=== PATIENT | female | born 1970 | race Caucasian/White ===

== ENCOUNTER 2021-11-12 07:39 | Observation (INO) | payer BC, SELFPAY ==
[2021-11-12] VITALS (19 sets, daily range): BP systolic 116–153; BP diastolic 58–97; PULSE 63–96; RESP 12–26; TEMP 36.8–37.4; O2SAT 95–100; BMI 33.8
--- NOTE | ~2021-11-12 | XR_ITS ---
EXAMINATION: XR chest 2V EXAM DATE: 11/12/2021 08:08 INDICATION: Chest Pain, Chest Heavy, Hand Tingling, No Known Med Hx TECHNIQUE: Frontal and lateral projections of the chest obtained and reviewed. Comparison is made to prior examination from 12/04/2018. FINDINGS: The lungs are clear. There are no pleural effusions. The cardiomediastinal silhouette is within normal limits. There is no pneumothorax suspected. The bones and soft tissues are unremarkab le. IMPRESSION: No acute cardiopulmonary findings. Reviewed, dictated and finalized at location G. GER TRACK
--- NOTE | 2021-11-12 08:00 | ECG_ITS ---
Measurements Intervals [place] Rate: 88 P: 63 OR: 157 QRS: 7 QRSD: 94 T: 62 QT: 360 QTc: 438 Interpretive Statements SINUS RHYTHM EARLY PRECORDIAL R/S TRANSITION BORDERLINE ST-T WAVE ABNORMALITY- HIGH LATERAL LEADS BASELINE ARTIFACT- I, II, III, AVR, AVF, V2-V6 BORDERLINE ECG Electronically Signed On 11-12-2021 8:13:21 METAL FRAMER by Jareth James D.O.
[2021-11-12 08:07] LABS: Basophils Percent Auto 0.5 % (0.2-1.2); Eosinophils Absolute Auto 0.1 K/mm3 (0-0.3); Eosinophils Percent Auto 1.4 % (0-4.4); Hematocrit 39.5 % (37.0-47.0); Hemoglobin 13.2 g/dL (12.0-15.0); Immature Granulocyte Absolute 0.01 K/mm3 (0.00-0.031); Immature Granulocyte Percent A 0.2 % (0-0.5); Lymphocytes Absolute Auto 2.19 K/mm3 (0.9-3.2); Lymphocytes Percent Auto 39.3 % (18.3-44.2); Mean Corpuscular HGB Conc 33.4 g/dl (32-36); Mean Corpuscular Hemoglobin 29.6 pg (26-34); Mean Corpuscular Volume 88.6 fl (80-100); Mean Platelet Volume 9.7 fl (7.4-10.4); Monocytes Absolute Auto 0.4 K/mm3 (0.1-0.6); Monocytes Percent Auto 6.6 % (2.6-8.5); Neutrophils Absolute Auto 2.9 K/mm3 (1.3-6.7); Platelet Count Result 276 k/mm3 (150-375); Red Blood Count 4.46 M/mm3 (4.2-5.4); White Blood Count 5.6 K/mm3 (4.5-10.0)
[2021-11-12 08:18] LABS: Alanine Aminotransferase 18 U/L (4-35); Albumin Level 4.5 g/dL (3.5-5.1); Alkaline Phosphatase 53 U/L (38-126); Anion Gap 12 mmol/L (8-16); Aspartate Amino Transferase 22 U/L (14-36); Bilirubin,Total 0.3 mg/dL (0.2-1.3); Blood Urea Nitrogen 13 mg/dL (7-17); Calcium 9.7 mg/dL (8.4-10.2); Carbon Dioxide 24 mmol/L (22-30); Chloride 104 mmol/L (98-107); Estimated CRCL calculation 84 ml/min; Estimated Glomerular Filt Rate > 60; Glucose 116 mg/dL (65-110); Lipase 118 U/L (23-300); Potassium 3.8 mmol/L (3.4-5.0); Sodium 140 mmol/L (137-145)
[2021-11-12 08:20] LABS: Partial Thromboplastin Time 28.6 SECONDS (22.3-36.8); Prothrombin Time 13.1 Seconds (11.1-14.7)
[2021-11-12] MEDS: ASPIRIN 81 MG CHEWABLE TABLET 324 MG PO (08:27)
[2021-11-12 08:33] LABS: Troponin I < 0.012 ng/mL (0.000-0.034)
--- NOTE | 2021-11-12 09:05 | PC.NURSE ---
Awaiting to be seen by ERP. Offers no c/o.
--- NOTE | 2021-11-12 09:05 | ED.GENADULT ---
HPI - General Adult General Chief complaint: Chest Pain Stated complaint: cp Time Seen by Provider: 11/12/21 09:02 History of Present Illness HPI narrative: Patient is a 51-year-old female with history of obesity, history of cigarette use, family history of CAD who comes to the ED today complaining of chest pain. Patient reports that she has been having chest pain intermittently for about a month. Has become worse since yesterday. She woke up at 4 AM with the chest pain that she describes as pressure. Also this morning she had tingling and both shoulders and was diaphoretic. Currently still having some midsternal chest pressure. Denies any shortness of breath. Denies any lower extremity edema. Has a 45-fcbs-iual cigarette smoking history, quit smoking about 6 months ago. Notes that she is on clindamycin for a dental abscess. Last stress test was several years ago. Does not have a clinical care leader. Related Data Home Medications Medication Instructions Recorded Confirmed clindamycin HCl 300 mg TID 11/12/21 11/12/21 Allergies Allergy/AdvReac Type Severity Reaction Status Date / Time hydrocodone Allergy Severe HALLUCINATI Verified 11/12/21 08:04 ONS imipramine Allergy Severe CONFUSION Verified 11/12/21 08:04 latex Allergy Severe ITCHEY Verified 11/12/21 08:04 SWELLING Penicillins Allergy Severe SWELLING Verified 11/12/21 08:04 FACE, RASH codeine Allergy Unknown Unknown Verified 11/12/21 08:04 Review of Systems Constitutional: Constitutional: Reports as per HPI, Denies fever(s), Denies night sweats and Denies weakness Cardiovascular: Cardiovascular: Reports chest pain, Denies edema, Denies leg edema, Denies dyspnea and Denies orthopnea Respiratory: Respiratory: Denies cough and Denies dyspnea Gastrointestinal: Gastrointestinal: Denies abdominal pain, Denies constipation, Denies diarrhea, Denies nausea and Denies vomiting Musculoskeletal: Musculoskeletal: Denies abnormal gait, Denies back pain, Denies numbness and Denies tingling Neurologic: Denies Abnormal speech present, Denies abnormal gait, Denies numbness, Denies tingling and Denies weakness Psychiatric: Psychiatric: Denies homicidal ideation and Denies suicidal ideation [facility] Family History Family History Father Hypertension Family history of elevated blood lipids Mother Patient's mother is in good health Family history of elevated blood lipids Family history of diabetes mellitus in first degree relative Grandparent Cerebrovascular accident, Onset Age: 78 Family history of lung cancer, Onset Age: 74 Social History Social History Years smoked: 5 Smoking status: Current every day smoker Tobacco type: cigarettes Smoking end date: 10/27/98 Alcohol intake: current Exam Const: General: cooperative, healthy appearing, comfortable, no acute distress, well developed, alert, awake and Physically active Orientation/consciousness: patient oriented x3 HENMT: Head: normal to inspection, normocephalic and atraumatic Ears: external ears normal General nose exam: Normal external nose present Throat image: 1. Dental carry. Surrounding gingiva is tender to palpate. No appreciable drainable abscess Eyes: Pupils: Equal, round and reactive pupils present EOM: EOMs intact bilaterally Neck: Neck: normal visual inspection Chest: Chest palpation & inspection: normal inspection of the chest and tenderness (Tender to palpate over midsternal aspect of chest) Resp: Effort & Inspection: normal respiratory effort and able to speak in complete sentences Auscultation: clear to auscultation bilaterally Cardio: Rate: regular rate Rhythm: regular rhythm GI: Inspection: normal to inspection GI Palp: No abdominal tenderness : General: Yes no CVA tenderness Back/Spine/Pelvis: Back: no CVA tenderness Skin:
[2021-11-12] MEDS: FAMOTIDINE 20 MG TABLET PO (10:37)
[2021-11-12] MEDS: ACETAMINOPHEN 325 MG TABLET 650 MG PO (10:37)
[2021-11-12 11:56] LABS: Troponin I < 0.012 ng/mL (0.000-0.034)
[2021-11-12 14:40] LABS: Troponin I < 0.012 ng/mL (0.000-0.034)
--- NOTE | 2021-11-12 15:28 | PM.SD2 ---
Same Day Admit/Disch: HPI History of Present Illness Chief complaint: Chest Pain Narrative: Amelia Briscoe is a 51 year old female with past medical history of interstitial cystitis, cigarette smoking, obesity, and seasonal allergies who presented to the emergency department today for complaints of chest pain. According to the patient, she began experiencing retrosternal chest pain about 1 month ago. She describes the pain as a dull, sore, constant pressure-like sensation that does not radiate. She says that the pain does not worsen with activity and she is not aware of any specific relieving factors. She does say that she usually sleeps on her side because she has some back pain and this seems to cause increased discomfort in her chest. She says that her sternum is painful to touch and she thinks that she feels a bump on her sternum. She denies having any associated nausea, diaphoresis, radiating pain. She did decide to come to the hospital today because she had an episode of experiencing pain in her shoulder associated with numbness across her back and this caused her to lose mold mechanic on her coffee cup. Currently, she states that this discomfort is at her baseline and has been constant since her presentation to the emergency department. [facility] Family History Family History (Updated 11/12/21 @ 15:41 by ROBB Batista) Father Hypertension Family history of elevated blood lipids Acute myocardial infarction Per patient, father had a CABG x5 in 2012. Mother Patient's mother is in good health Family history of elevated blood lipids Family history of diabetes mellitus in first degree relative Grandparent Cerebrovascular accident, Onset Age: 78 Family history of lung cancer, Onset Age: 74 Social History Social History Years smoked: 5 Smoking status: Former smoker Tobacco type: cigarettes Smoking end date: 06/14/20 Alcohol intake: current Gender identity (if verbalized by the patient): Female Sexual Orientation (if Verbalized by the Patient): Straight or Heterosexual Same Day Admit/Disch: Med Pre-admit Medications Home Medications Medication Instructions Recorded Confirmed Type albuterol sulfate 90 mcg/actuation 2 inh INHALATION Q4-6H PRN #8.5 g 03/22/21 08/21/21 Rx aerosol inhaler clindamycin HCl 300 mg TID 11/12/21 11/12/21 History Exam Const: General: comfortable and no acute distress HENMT: Head: normal to inspection Mouth: Yes moist mucous membranes Eyes: General: appearance normal, both eyes and all related structures Pupils: Equal, round and reactive pupils present Neck: Neck: supple and no JVD Resp: Auscultation: clear to auscultation bilaterally Cardio: Rate: regular rate Rhythm: regular rhythm Heart sounds: S1 normal heart sound present and S2 normal heart sound present GI: GI Palp: Yes Soft to palpation Auscultation: normal bowel sounds Skin: General skin exam: normal color Wounds: no wounds Neuro: Cognition (Neuro): normal cognition Speech: normal speech Extrem: General: normal to inspection Psych: Mental Status: mental status grossly normal Affect: normal affect DS: Data Data Completed and Pending Labs on day of discharge: Labs from last 24 hours 11/12/21 11/12/21 11/12/21 14:02 11:26 08:02 WBC RBC Hgb Hct MCV MCH MCHC RDW Plt Count MPV Immature Gran % (Auto) Neut % (Auto) Lymph % (Auto) Scurry % (Auto) Eos % (Auto) Baso % (Auto) Lymph # (Auto) Scurry # (Auto) Eos # (Auto) Baso # (Auto) Abs Immat Gran (auto) Absolute Neuts (auto) Absolute Nucleated RBC Nucleated RBC % PT INR APTT Sodium 140 Potassium 3.8 Chloride 104 Carbon Dioxide 24 Anion Gap 12 BUN 13 Creatinine 0.70 Estim Creat Clear Calc 84 Estimated GFR > 60 Glucose 116 H Calcium 9.7 Tota
== END 2021-11-12 16:21 | disposition home or self-care (01) ==
LOC: ANHED 10:26 → ANHCPC 10:52
PROVIDERS: Admitting Provider Internal Medicine Cardiovascular Disease; Emergency Provider Emergency Medicine; PCP Internal Medicine; Visit Provider Internal Medicine Cardiovascular Disease
DX: R07.9 Chest pain, unspecified (principal); E78.5 Hyperlipidemia, unspecified; F17.201 Nicotine dependence, unspecified, in remission; K02.9 Dental caries, unspecified; Z79.51 Long term (current) use of inhaled steroids; E66.9 Obesity, unspecified; Z68.33 Body mass index [BMI] 33.0-33.9, adult
CPT/HCPCS: 36415; 71046; 80053; 83690; 84484; 85025; 85610; 85730; 93005; 99285; A9270; G0378

== ENCOUNTER 2023-08-14 15:10 | Outpatient (CLI) | payer BC, OTHER, SELFPAY ==
--- NOTE | 2023-08-19 14:18 | WPDHOLTEREM ---
Holter/Event Monitor Holter/Event Monitor Date of procedure: 08/14/23 Holter/Event Procedure: 48 Hr Holter Monitor Indications: Bradycardia Conclusion: 1. 48 hour holter monitor on 08/14/23. 2. Underlying rhythm is sinus rhythm. HR range 59-129 bpm; average HR 90 bpm. 3. There are 11 premature supraventricular complexes. No supraventricular tachycardia. 4. No premature ventricular complexes. No ventricular tachycardia. 5. No sinoatrial or atrioventricular blocks. No significant pauses greater than 2 seconds. 6. Patient reports symptoms of rapid heart rate and chest pain which demonstrate sinus rhythm, HR range 97-111 bpm.
== END 2023-08-14 15:11 | disposition home or self-care (01) ==
LOC: ANHCARD 15:16
PROVIDERS: PCP Internal Medicine; Visit Provider Internal Medicine
DX: R00.1 Bradycardia, unspecified (principal)
CPT/HCPCS: 93225; 93226

== ENCOUNTER 2023-08-19 14:00 | Emergency (ER) | payer BC, OTHER, SELFPAY ==
--- NOTE | ~2023-08-19 | XR_ITS ---
EXAMINATION: XR chest 2V 08/19/2023 15:00 INDICATION: Cough with fever PROCEDURE: 2 view chest COMPARISON: 11/12/2021 FINDINGS: The lungs are clear. The cardiomediastinal silhouette is within normal limits. There are no pleural effusions. There is no pneumothorax suspected. IMPRESSION: 1: NO ACUTE CARDIOPULMONARY DISEASE. Reviewed, dictated and finalized at location L.
--- NOTE | 2023-08-19 14:04 | ED.URI ---
HPI - URI/Sore Throat General Chief Complaint: Upper Respiratory Infection Stated Complaint: Sinus/Fever Time Seen by Provider: 08/19/23 14:18 Source: patient, RN notes reviewed and old records reviewed Mode of arrival: ambulatory Limitations: no limitations History of Present Illness HPI Narrative: 53-year-old female presents to the [facility] with sinus pressure and fever. Symptoms started 2 days ago. Has been using Flonase. No other treatment prior to arrival. Onset (ago): day(s) (2) Treatments prior to arrival: other (Flonase) Related Data Home Medications Medication Instructions Recorded Confirmed cephalexin 500 mg capsule mg 08/19/23 fluticasone propionate 50 1 spray intranasal DAILY 08/19/23 08/19/23 mcg/actuation nasal spray,suspension Allergies Allergy/AdvReac Type Severity Reaction Status Date / Time hydrocodone Allergy Severe HALLUCINATI Verified 08/19/23 14:07 ONS imipramine Allergy Severe CONFUSION Verified 08/19/23 14:07 latex Allergy Severe ITCHEY Verified 08/19/23 14:07 SWELLING Penicillins Allergy Severe SWELLING Verified 08/19/23 14:07 FACE, RASH codeine Allergy Unknown Unknown Verified 08/19/23 14:07 clindamycin Allergy Severe Other Uncoded 08/19/23 14:07 bactrim Allergy Mild Itching Uncoded 08/19/23 14:07 Review of Systems Review of Systems: All systems reviewed & are unremarkable except as noted in HPI and below Constitutional: Constitutional: Reports no additional constitutional complaints Eyes: Eyes: Reports no additional eye complaints ENT: Reports as per HPI Cardiovascular: Cardiovascular: Reports no additional cardiovascular complaints, Denies chest pain and Denies dyspnea Respiratory: Respiratory: Reports as per HPI, Denies chest congestion, Reports cough and Denies dyspnea Gastrointestinal: Gastrointestinal: Reports no additional gastrointestinal complaints, Denies abdominal pain, Denies nausea and Denies vomiting Musculoskeletal: Musculoskeletal: Reports no additional musculoskeletal complaints Integumentary/Breasts: Skin/Breast: Reports system reviewed and no additional complaints, except as docu Neurologic: Reports system reviewed and no additional complaints, except as documented Psychiatric: Psychiatric: Reports no additional psychiatric complaints Allergic/Immunologic: Allergic/Immunologic: Reports no additional allergic/immunologic complaints PMFSH Past Medical History Medical History Cigarette smoker Family History Family History Father Hypertension Family history of elevated blood lipids Acute myocardial infarction Per patient, father had a CABG x5 in 2013. Mother Patient's mother is in good health Family history of elevated blood lipids Family history of diabetes mellitus in first degree relative Grandparent Cerebrovascular accident, Onset Age: 78 Family history of lung cancer, Onset Age: 74 Social History Social History Years smoked: 5 Smoking status: Former smoker Tobacco type: cigarettes Smoking end date: 06/14/20 Alcohol intake: current Lack of Transportation: No Lack of Food: Never True Current Housing: I Have Housing Concerned About Future Housing: No Difficulty Paying Gas/Electric Bills: No Difficulty Paying for Meds: No Currently Unemployed: No Education: Associate Degree Difficulty w/ Childcare or Family Care: No Gender identity (if verbalized by the patient): Female Sexual Orientation (if Verbalized by the Patient): Straight or Heterosexual Comments At the time of my signature, I reviewed and agree with the nursing past medical, surgical, social, and family history. There is no relevant family history pertinent to the patient complaint. Exam Const: General: cooperative, healthy appearing, comfortable, no acute distress, well developed, alert and
[2023-08-19 14:09] VITALS: BP 139/81; PULSE 126; RESP 20; TEMP 39; O2SAT 95
[2023-08-19 14:22] VITALS: TEMP 39
[2023-08-19] MEDS: ACETAMINOPHEN 500 MG TABLET 1000 MG PO (14:22)
[2023-08-19 15:12] VITALS: TEMP 38.6
== END 2023-08-19 15:16 | disposition home or self-care (01) ==
PROVIDERS: Emergency Provider Nurse Practitioner; PCP Internal Medicine
DX: B34.9 Viral infection, unspecified (principal); Z20.822 Contact with and (suspected) exposure to COVID-19; Z87.891 Personal history of nicotine dependence
CPT/HCPCS: 71046; 87081; 87426; 87804; 87880; 99213; A9270; C9803; G0463

== ENCOUNTER 2023-10-23 08:38 | Emergency (ER) | payer BC, OTHER, SELFPAY ==
--- NOTE | 2023-10-23 08:45 | ED.GENADULT ---
HPI - General Adult General Chief complaint: Recheck/Abnormal Lab/Rx Stated complaint: High B/P Time Seen by Provider: 10/23/23 08:52 Source: patient, RN notes reviewed and old records reviewed Mode of arrival: ambulatory Limitations: no limitations History of Present Illness HPI narrative: 53-year-old female presents to the [facility] with concerns for her blood pressure. Recently started in June on medication. Recently started on lisinopril due to GI issues was switched to amlodipine. Patient states her blood pressures have been 140s to 160s systolic Reports intermittent headache. Denies any other symptoms. Denies any symptoms currently Related Data Home Medications Medication Instructions Recorded Confirmed cephalexin 500 mg capsule mg 08/19/23 fluticasone propionate 50 1 spray intranasal DAILY 08/19/23 08/19/23 mcg/actuation nasal spray,suspension Allergies Allergy/AdvReac Type Severity Reaction Status Date / Time hydrocodone Allergy Severe HALLUCINATI Verified 08/19/23 14:07 ONS imipramine Allergy Severe CONFUSION Verified 08/19/23 14:07 latex Allergy Severe ITCHEY Verified 08/19/23 14:07 SWELLING Penicillins Allergy Severe SWELLING Verified 08/19/23 14:07 FACE, RASH codeine Allergy Unknown Unknown Verified 08/19/23 14:07 clindamycin Allergy Severe Other Uncoded 08/19/23 14:07 bactrim Allergy Mild Itching Uncoded 08/19/23 14:07 Review of Systems Review of Systems: All systems reviewed & are unremarkable except as noted in HPI and below Constitutional: Constitutional: Reports as per HPI (Concern for blood pressure) and Reports headache(s) (Intermittent) Eyes: Eyes: Reports no additional eye complaints ENT: Reports system reviewed and no additional complaints, except as documented Cardiovascular: Cardiovascular: Reports no additional cardiovascular complaints, Denies chest pain and Denies dyspnea Respiratory: Respiratory: Reports no additional respiratory complaints, Denies chest congestion, Denies cough and Denies dyspnea Gastrointestinal: Gastrointestinal: Reports no additional gastrointestinal complaints, Denies abdominal pain, Denies nausea and Denies vomiting Musculoskeletal: Musculoskeletal: Reports no additional musculoskeletal complaints Integumentary/Breasts: Skin/Breast: Reports system reviewed and no additional complaints, except as docu Neurologic: Reports system reviewed and no additional complaints, except as documented Psychiatric: Psychiatric: Reports no additional psychiatric complaints Allergic/Immunologic: Allergic/Immunologic: Reports no additional allergic/immunologic complaints PMFSH Past Medical History Medical History Cigarette smoker Family History Family History Father Hypertension Family history of elevated blood lipids Acute myocardial infarction Per patient, father had a CABG x5 in 2012. Mother Patient's mother is in good health Family history of elevated blood lipids Family history of diabetes mellitus in first degree relative Grandparent Cerebrovascular accident, Onset Age: 78 Family history of lung cancer, Onset Age: 74 Social History Social History Years smoked: 5 Smoking status: Former smoker Tobacco type: cigarettes Smoking end date: 06/14/20 Alcohol intake: current Lack of Transportation: No Lack of Food: Never True Current Housing: I Have Housing Concerned About Future Housing: No Difficulty Paying Gas/Electric Bills: No Difficulty Paying for Meds: No Currently Unemployed: No Education: Associate Degree Difficulty w/ Childcare or Family Care: No Gender identity (if verbalized by the patient): Female Sexual Orientation (if Verbalized by the Patient): Straight or Heterosexual Comments At the time of my signature, I reviewed and agree with the nursing past med
[2023-10-23 08:49] VITALS: BP 146/88; PULSE 98; RESP 16; TEMP 37; O2SAT 98
== END 2023-10-23 09:08 | disposition home or self-care (01) ==
PROVIDERS: Emergency Provider Nurse Practitioner; PCP Internal Medicine
DX: R03.0 Elevated blood-pressure reading, without diagnosis of hypertension (principal); Z87.891 Personal history of nicotine dependence
CPT/HCPCS: 99211; G0463

== ENCOUNTER 2023-11-25 12:31 | Emergency (ER) | payer BC, OTHER, SELFPAY ==
--- NOTE | ~2023-11-25 | XR_ITS ---
EXAMINATION: XR chest 2V DATE: 11/25/2023 13:11 INDICATION: Chest pain. TECHNIQUE: Frontal and lateral views of the chest were obtained. COMPARISON: Chest 2 views 08/19/2023 FINDINGS: There is no pneumonia, pleural effusion, or pneumothorax. The heart size is normal. IMPRESSION: 1. No acute cardiopulmonary disease. Reviewed, dictated and finalized at location A. SAW OPERATOR
--- NOTE | 2023-11-25 12:32 | ECG_ITS ---
Measurements Intervals [place] Rate: 97 P: 65 [place]: 155 QRS: 11 QRSD: 98 T: 67 QT: 343 QTc: 436 Interpretive Statements SINUS RHYTHM BORDERLINE ST-T WAVE ABNORMALITY- ANTEROLAT/HIGH LAT LEADS BASELINE ARTIFACT- I, III BORDERLINE ECG COMPARED TO ECG 11/12/2021 07:54:07 NO SIGNIFICANT CHANGES Electronically Signed On 11-25-2023 12:53:31 PRODUCT ASSURANCE ENGINEER by Jareth James D.O.
[2023-11-25 12:36] VITALS: BP 144/81; PULSE 94; RESP 16; TEMP 36.8; O2SAT 99
--- NOTE | 2023-11-25 12:47 | ED.CHESTPAIN ---
HPI - Chest Pain General Chief Complaint: Chest Pain Stated Complaint: Chest pain Time Seen by Provider: 11/25/23 12:47 Source: patient and family Mode of arrival: ambulatory Limitations: no limitations History of Present Illness HPI narrative: 53 years old white female came to the emergency room by private car with sudden onset of tingling of the hand and legs with lightheadedness lasted for few seconds less than 1 minute while walking her dog this morning. A lot of stress lately related to work and ex-boyfriend. Patient denies any chest pain or shortness of breath, history of hypertension, intermittent smoking, intermittent drinking, father had a heart attack at age 68. Related Data Home Medications Medication Instructions Recorded Confirmed cephalexin 500 mg capsule mg 08/19/23 fluticasone propionate 50 1 spray intranasal DAILY 08/19/23 08/19/23 mcg/actuation nasal spray,suspension Allergies Allergy/AdvReac Type Severity Reaction Status Date / Time clindamycin Allergy Severe ESOPHAGITIS Verified 11/25/23 12:49 hydrocodone Allergy Severe HALLUCINATI Verified 11/25/23 12:45 ONS imipramine Allergy Severe CONFUSION Verified 11/25/23 12:45 latex Allergy Severe ITCHEY Verified 11/25/23 12:45 SWELLING Penicillins Allergy Severe SWELLING Verified 11/25/23 12:45 FACE, RASH sulfamethoxazole Allergy Mild Itching Verified 11/25/23 12:48 [From Bactrim] trimethoprim [From Bactrim] Allergy Mild Itching Verified 11/25/23 12:48 codeine Allergy Unknown Unknown Verified 11/25/23 12:45 Review of Systems Review of Systems: All systems reviewed & are unremarkable except as noted in HPI and below PMFSH Past Medical History Medical History Cigarette smoker Family History Family History Father Hypertension Family history of elevated blood lipids Acute myocardial infarction Per patient, father had a CABG x5 in 2013. Mother Patient's mother is in good health Family history of elevated blood lipids Family history of diabetes mellitus in first degree relative Grandparent Cerebrovascular accident, Onset Age: 78 Family history of lung cancer, Onset Age: 74 Social History Social History Years smoked: 5 Smoking status: Former smoker Tobacco type: cigarettes Smoking end date: 06/14/20 Alcohol intake: current Lack of Transportation: No Lack of Food: Never True Current Housing: I Have Housing Concerned About Future Housing: No Difficulty Paying Gas/Electric Bills: No Difficulty Paying for Meds: No Currently Unemployed: No Education: Associate Degree Difficulty w/ Childcare or Family Care: No Gender identity (if verbalized by the patient): Female Sexual Orientation (if Verbalized by the Patient): Straight or Heterosexual Exam Narrative: General appearance: Well-developed, well-nourished Skin: Normal color Head: Normocephalic, nontraumatic Eyes: Clear conjunctiva ENT: Oropharynx normal, ears normal, nose normal Neck: Supple, nontender Chest and respiratory: Airway patent, no respiratory distress, no accessory muscle use Heart: Regular rate/rhythm Abdomen: Soft, nontender, no organomegaly, quiet bowel sounds Vascular: Normal peripheral pulses, normal capillary refill. Musculoskeletal: Normal range of motion, nontender back Neurologic: Alert and oriented ?3, HAM CURER is normal as tested, no gross motor deficit Course Reevaluation(s) Reevaluation #1: Feeling much better after Ativan IV Date: 11/25/23 Time: 13:41 Vital Signs Vital signs: Vital Signs
[2023-11-25 12:50] VITALS: BP 138/82; PULSE 90; RESP 14; O2SAT 100
[2023-11-25] MEDS: ASPIRIN 81 MG CHEWABLE TABLET 324 MG PO (12:52)
[2023-11-25 12:54] LABS: Basophils Absolute Auto 0.1 K/mm3 (0.0-0.1); Basophils Percent Auto 0.5 % (0.2-1.2); Eosinophils Absolute Auto 0.1 K/mm3 (0-0.3); Eosinophils Percent Auto 0.8 % (0-4.4); Hematocrit 44.8 % (37.0-47.0); Hemoglobin 14.3 g/dL (12.0-15.0); Immature Granulocyte Absolute 0.02 K/mm3 (0.00-0.031); Immature Granulocyte Percent A 0.2 % (0-0.5); Lymphocytes Absolute Auto 2.62 K/mm3 (0.9-3.2); Mean Corpuscular HGB Conc 31.9 g/dl (32-36); Mean Corpuscular Hemoglobin 28.4 pg (26-34); Mean Corpuscular Volume 89.1 fl (80-100); Mean Platelet Volume 9.8 fl (7.4-10.4); Monocytes Absolute Auto 0.4 K/mm3 (0.1-0.6); Monocytes Percent Auto 4.4 % (2.6-8.5); Neutrophils Absolute Auto 6.5 K/mm3 (1.3-6.7); Neutrophils Percent Auto 67.1 % (45.5-73.1); Platelet Count Result 387 k/mm3 (150-375); Red Blood Count 5.03 M/mm3 (4.2-5.4); Red Cell Distribution Width 13.2 % (11.5-14.5); White Blood Count 9.7 K/mm3 (4.5-10.0)
[2023-11-25 12:59] LABS: Alanine Aminotransferase 20 U/L (6-35); Albumin Level 4.7 g/dL (3.5-5.1); Alkaline Phosphatase 76 U/L (38-126); Anion Gap 11 mmol/L (8-16); Aspartate Amino Transferase 25 U/L (14-36); Bilirubin,Total 0.4 mg/dL (0.2-1.3); Blood Urea Nitrogen 11 mg/dL (7-17); Calcium 9.8 mg/dL (8.4-10.2); Carbon Dioxide 24 mmol/L (22-30); Chloride 105 mmol/L (98-107); Estimated CRCL calculation 105 ml/min; Estimated Glomerular Filt Rate > 60; Glucose 114 mg/dL (65-110); Lipase 98 U/L (23-300); Sodium 140 mmol/L (137-145)
[2023-11-25 13:10] LABS: Troponin I < 0.012 ng/mL (0.000-0.034)
[2023-11-25] MEDS: LORazepam INJ (*CRX) 2 MG/ML VIAL 1 MG IV PUSH (13:23)
[2023-11-25 13:26] VITALS: BP 132/80; PULSE 92; RESP 16; O2SAT 98
[2023-11-25 13:29] LABS: Thyroid Stimulating Hormone 0.312 uIU/mL (0.465-4.680)
[2023-11-25 13:29] LABS: Prothrombin Time 13.7 Seconds (11.1-14.7)
[2023-11-25 13:30] LABS: Partial Thromboplastin Time 29.2 SECONDS (22.3-36.8)
== END 2023-11-25 14:27 | disposition home or self-care (01) ==
PROVIDERS: Emergency Provider Emergency Medicine; PCP Internal Medicine
DX: R07.9 Chest pain, unspecified (principal); R20.2 Paresthesia of skin; R42 Dizziness and giddiness; Z87.891 Personal history of nicotine dependence
CPT/HCPCS: 36415; 71046; 80053; 83690; 84443; 84484; 85025; 85610; 85730; 93005; 96374; 99284; A9270; J2060

== ENCOUNTER 2024-01-01 08:19 | Outpatient (CLI) | payer BC, OTHER, SELFPAY ==
--- NOTE | 2024-01-15 16:09 | WPDHOMESLEEP ---
Sleep Study - Home Unattended Date of Study: 01/01/24 Ordering Provider: Max Reed PA-C Interpreting Provider: Joy Yao MD [place] Sleep Study Type: Watch PAT Height: 1.57 m Weight: 89.811 kg Body Mass Index: 36.2 Neck Circumference (inches): 14.5 [place]: 5 Reason for Sleep Study poor sleep quality, increased blood pressure Sleep History Amelia Briscoe is a 53-year-old woman with poor quality sleep, initially when her son was diagnosed with cancer at age 6; had recurrence when he was 11 years old. He is now 22 years old, doing well. She rarely awakens from sleep short of breath. She occasionally wakes at night with heartburn, belching or coughing.??She frequently snores loudly enough that others complain. She occasionally has trouble sleeping when she has a cold. She rarely wakes up gasping for breath during the night. She rarely has breathing problems at night. She frequently sweats excessively at night. She frequently notices her heart pounding or beating irregularly during the night. She never falls asleep during the day, falls asleep involuntarily, or falls asleep while driving. She never experiences loss of muscle tone with strong emotion. She never feels paralyzed on waking or falling asleep. She never experiences vivid dreams upon waking or falling asleep. She never feels afraid of going to sleep. She never has nightmares. She occasionally recalls her dreams. She frequently has thoughts racing through her mind. She rarely feels sad or depressed. She constantly feels anxiety. She occasionally notices parts of her body jerk. She occasionally kicks during the night. She rarely feels crawling or aching feelings in her legs. She rarely feels leg pain at night. She occasionally has morning jaw pain, and frequently grinds her teeth at night. She occasionally feels bothered by pain during the day, is rarely awakened by pain during the night. She rarely wakes up feeling stiff in the morning, occasionally wakes feeling sore or achy in the morning or with pain in her neck, spine, or joints. She wakes with a scratchy throat, sometimes a headache, has daytime fatigue, and has bladder issues. Her blood pressure has been more difficult to control. She sometimes takes a Xanax to get to sleep at night. She has chest pain from reflux. Normal bedtime is 10:p.m., falling asleep, waking within 30 min to an hour, waking 2-3 times in the night to urinate, returning to sleep within 2-5 minutes. She wakes at 5:30 a.m., reports getting 5-6 hours of sleep per night. On weekends, she goes to bed at midnight, sleeps until she wakes, usually around 9:00 a.m. She has insomnia, fatigue, and takes antacids regularly. She has headaches and palpitations. She does not take naps. A short nap lasting 10-15 minutes is not refreshing. She is drowsy for 2 hours after waking. Habits:??Tobacco: Quit smoking ; congrats! Caffeine: 4 cups of coffee daily. Alcohol:socially, 3 beers a week Recreational substances: none PMFSH Past Medical History Medical History (Updated 01/16/24 @ 12:54 by Joy Yao MD) Essential hypertension GERD (gastroesophageal reflux disease) Hyperlipidemia Insomnia Family History Family History Father Hypertension Family history of elevated blood lipids Acute myocardial infarction Per patient, father had a CABG x5 in 2012. Mother Patient's mother is in good health Family history of elevated blood lipids Family history of diabetes mellitus in first degree relative Grandparent Cerebrovascular accident, Onset Age: 78 Family history of lung cancer, Onset Age: 74 Social History Social History Years smoked: 5 Smoking status: Former smoker Tobacco type: cigarettes Smoking end date: 06/14/20 Alcohol intake: current Lack of Transportation: No Lack of Food: Pily
[2024-01-16 12:35] VITALS: BMI 36.2
== END 2024-01-02 07:30 | disposition home or self-care (01) ==
LOC: ANHCSM 08:21
PROVIDERS: PCP Internal Medicine; Visit Provider Physician Assistant
DX: G47.10 Hypersomnia, unspecified (principal); G47.33 Obstructive sleep apnea (adult) (pediatric)
CPT/HCPCS: 95800

== ENCOUNTER 2024-02-04 08:32 | Outpatient (CLI) | payer BC, OTHER, SELFPAY ==
[2024-02-15 18:35] VITALS: BMI 36.2
--- NOTE | 2024-02-15 18:35 | WPDSLEEPSTUD ---
Sleep Study Date of Study: 02/04/24 Ordering Provider: Max Reed PA-C Interpreting Physician: Melany Velazquez, Sleep Study Type: CPAP Titration Height: 1.57 m Weight: 89.811 kg Body Mass Index: 36.2 Neck Circumference (inches): 14.5 [place]: 5 Reason for Sleep Study She had a WatchPAT home sleep test on 01/01/2024 that showed an overall AHI of 16.3 with desaturation down to 74%. REM AHI of 44.7. Sleep History Amelia Briscoe is a 53-year-old woman with poor quality sleep, initially when her son was diagnosed with cancer at age 6; had recurrence when he was 11 years old. He is now 22 years old, doing well. She rarely awakens from sleep short of breath. She occasionally wakes at night with heartburn, belching or coughing.??She frequently snores loudly enough that others complain. She occasionally has trouble sleeping when she has a cold. She rarely wakes up gasping for breath during the night. She rarely has breathing problems at night. She frequently sweats excessively at night. She frequently notices her heart pounding or beating irregularly during the night. She never falls asleep during the day, falls asleep involuntarily, or falls asleep while driving. She never experiences loss of muscle tone with strong emotion. She never feels paralyzed on waking or falling asleep. She never experiences vivid dreams upon waking or falling asleep. She never feels afraid of going to sleep. She never has nightmares. She occasionally recalls her dreams. She frequently has thoughts racing through her mind. She rarely feels sad or depressed. She constantly feels anxiety. She occasionally notices parts of her body jerk. She occasionally kicks during the night. She rarely feels crawling or aching feelings in her legs. She rarely feels leg pain at night. She occasionally has morning jaw pain, and frequently grinds her teeth at night. She occasionally feels bothered by pain during the day, is rarely awakened by pain during the night. She rarely wakes up feeling stiff in the morning, occasionally wakes feeling sore or achy in the morning or with pain in her neck, spine, or joints. She wakes with a scratchy throat, sometimes a headache, has daytime fatigue, and has bladder issues. Her blood pressure has been more difficult to control. She sometimes takes a Xanax to get to sleep at night. She has chest pain from reflux. Normal bedtime is 10:p.m., falling asleep, waking within 30 min to an hour, waking 2-3 times in the night to urinate, returning to sleep within 2-5 minutes. She wakes at 5:30 a.m., reports getting 5-6 hours of sleep per night. On weekends, she goes to bed at midnight, sleeps until she wakes, usually around 9:00 a.m. She has insomnia, fatigue, and takes antacids regularly. She has headaches and palpitations. She does not take naps. A short nap lasting 10-15 minutes is not refreshing. She is drowsy for 2 hours after waking. Habits:??Tobacco: Quit smoking ; congrats! Caffeine: 4 cups of coffee daily. Alcohol:socially, 3 beers a week Recreational substances: none PMFSH Past Medical History Medical History Essential hypertension GERD (gastroesophageal reflux disease) Hyperlipidemia Insomnia Family History Family History Father Hypertension Family history of elevated blood lipids Acute myocardial infarction Per patient, father had a CABG x5 in 2012. Mother Patient's mother is in good health Family history of elevated blood lipids Family history of diabetes mellitus in first degree relative Grandparent Cerebrovascular accident, Onset Age: 78 Family history of lung cancer, Onset Age: 74 Social History Social History Years smoked: 5 Smoking status: Former smoker Tobacco type: cigarettes Smoking end date:
== END 2024-02-05 05:55 | disposition home or self-care (01) ==
LOC: ANHCSM 08:34
PROVIDERS: PCP Internal Medicine; Visit Provider Physician Assistant
DX: G47.33 Obstructive sleep apnea (adult) (pediatric) (principal)
CPT/HCPCS: 95811

== ENCOUNTER 2024-06-19 09:57 | Outpatient (CLI) | payer BC, SELFPAY ==
--- NOTE | ~2024-06-19 | XR_ITS ---
EXAMINATION: XR chest 2V Exam Date/Time: 06/19/2024 10:10 CDT HISTORY: F17.210 - Nicotine dependence, cigarettes, uncomplicated Comparison: 11/25/2023. RESULT: Lines, tubes, and devices: None. Lungs and pleura: Clear. Cardiomediastinal silhouette: Stable. Other: No acute osseous or upper abdominal finding. IMPRESSION: No acute cardiopulmonary process. Reviewed, dictated and finalized at location K.
== END 2024-06-19 09:58 | disposition home or self-care (01) ==
PROVIDERS: PCP Internal Medicine; Visit Provider Physician Assistant
DX: F17.210 Nicotine dependence, cigarettes, uncomplicated (principal)
CPT/HCPCS: 71046

== ENCOUNTER 2024-06-25 09:52 | Outpatient (CLI) | payer BC, SELFPAY ==
--- NOTE | 2024-06-25 13:36 | WPDPFTINT ---
PFT Procedure Performed PFT Procedure Performed Spirometry with Pre/Post Bronchodilator Plethysmography (Lung Vol) Diffusing Cap (DLCO) Flow Vol Loop PFT Interpretation This is a pulmonary function test with pre and post-bronchodilator spirometry, plethysmography and diffusing capacity. The test was performed and results interpreted in accordance with the 2019 and 2005 ATS/ERS Task Force guidelines respectively using the Global Lung Function Initiative-2012 reference equations. Patient demonstrated good effort and cooperation. Reproducibility criteria were met. The quality of the pre bronchodilator spirometry maneuver was Grade A and post bronchodilator spirometry maneuver was Grade A. Findings: Spirometry: There is decreased maximal expiratory airflow at all lung volumes. The contour the inspiratory flow tracing is normal. The pre bronchodilator FVC is 2.90 L, 93% predicted. The pre bronchodilator FEV1 is 1.97 L, 79% predicted. The pre bronchodilator FEV1: FVC ratio is 68%. The post bronchodilator FVC is 3.19 L, representing a 10% increase. The post bronchodilator FEV1 is 2.20 L, representing a 12% increase. The post bronchodilator FEV1: FVC ratio 69%. Plethysmography: The total lung capacity is 5.09 L, 108% predicted. The functional residual capacity is 1.99 L, 76% predicted. The residual volume is 1.80 L, 104% predicted. Diffusing capacity: The diffusing capacity unadjusted for hemoglobin and carboxyhemoglobin is 21.8, 101% predicted. The diffusing capacity adjusted for alveolar volume is 5.00, 108% predicted. Impression: There is a mild obstructive abnormality with a normal FEV1. There is significant improvement after inhaling a single dose of albuterol. The lung volumes are normal. The diffusing capacity is normal. There are no prior studies for comparison
== END 2024-06-25 09:53 | disposition home or self-care (01) ==
LOC: ANHPFT 09:55
PROVIDERS: PCP Internal Medicine; Visit Provider Nurse Practitioner
DX: G47.34 Idiopathic sleep related nonobstructive alveolar hypoventilation (principal); R94.2 Abnormal results of pulmonary function studies
CPT/HCPCS: 94060; 94726; 94729

== ENCOUNTER 2024-09-27 00:21 | Day surgery (SDC) | payer BC, SELFPAY ==
[2024-09-07 11:07] VITALS: BMI 38.2
[2024-09-27 11:46] VITALS: BP 141/80; PULSE 100; RESP 18; TEMP 36.3; O2SAT 100
[2024-09-27] MEDS: LACTATED RINGERS 1,000 ML 150 ML IV CONT (11:59)
--- NOTE | 2024-09-27 12:32 | PM.HPGS ---
History of Present Illness History of Present Illness Consent: Risks, benefits, and alternatives have been discussed and questions answered. Patient agrees to proceed with procedure. Chief complaint: GERD, screening colon Narrative: Amelia Briscoe is a 54 year old female when more gerd symptoms after taking antibiotic, never had egd. Also father with colon cancer. Review of Systems Review of Systems: All systems reviewed & are unremarkable except as noted in HPI and below PMFSH Past Medical History Medical History (Updated 09/27/24 @ 12:35 by Edmund Rodriguez MD) Essential hypertension Family history of colon cancer in father GERD (gastroesophageal reflux disease) Hyperlipidemia Insomnia Family History Family History Father Hypertension Family history of elevated blood lipids Acute myocardial infarction Per patient, father had a CABG x5 in 2012. Mother Patient's mother is in good health Family history of elevated blood lipids Family history of diabetes mellitus in first degree relative Grandparent Cerebrovascular accident, Onset Age: 78 Family history of lung cancer, Onset Age: 74 Social History Social History Smoking packs per day: 1 Smoking cigarettes per day: 20.0 Years smoked: 16 Smoking pack-years: 16.00 Smoking status: Former smoker Tobacco type: cigarettes Smoking end date: 06/14/20 Alcohol intake: current Substance use type: does not use Lack of Transportation: No Lack of Food: Never True Current Housing: I Have Housing Concerned About Future Housing: No Difficulty Paying Gas/Electric Bills: No Difficulty Paying for Meds: No Currently Unemployed: No Education: Associate Degree Difficulty w/ Childcare or Family Care: No Living arrangements: with family Additional living arrangements comments: with son Gender identity (if verbalized by the patient): Female Sexual Orientation (if Verbalized by the Patient): Straight or Heterosexual Spiritual care concerns: No Meds Home Medications and Allergies Home Medications Medication Instructions Recorded Confirmed Type fluticasone propionate 50 1 spray intranasal DAILY 08/19/23 09/27/24 History mcg/actuation nasal spray,suspension alprazolam 0.25 mg tablet 0.25 mg PO QHS PRN Anxiety 12/03/23 09/27/24 History cholecalciferol (vitamin D3) 50 50 mcg PO DAILY 12/03/23 09/27/24 History mcg (2,000 unit) capsule vitamin B complex (B 1 tablet PO DAILY 12/03/23 09/27/24 History Complex-Vitamin B12 tablet) amlodipine 5 mg tablet 10 mg PO DAILY #180 tabs 04/20/24 09/27/24 Rx L.acid,bul,para,rham-B.anim,long 1 cap PO DAILY 06/11/24 09/27/24 History 10 billion cell-inulin 100 mg capsule (Probitoic Digestive Support (6 strain)) albuterol sulfate 90 mcg/actuation 2 inh inhalation Q4-6H PRN 06/11/24 09/27/24 Rx aerosol inhaler shortness of breath or wheezing #8.5 grams aspirin 81 mg tablet,delayed 81 mg PO DAILY 06/11/24 09/27/24 History release (Adult Low Dose Aspirin) esomeprazole magnesium 40 mg 40 mg PO DAILY #90 caps 06/11/24 09/27/24 Rx capsule,delayed release Allergies Allergy/AdvReac Type Severity Reaction Status Date / Time clindamycin Allergy Severe ESOPHAGITIS Verified 09/27/24 11:44 hydrocodone Allergy Severe HALLUCINATI Verified 09/27/24 11:44 ONS imipramine Allergy Severe CONFUSION Verified 09/27/24 11:44 latex Allergy Severe ITCHEY Verified 09/27/24 11:44 SWELLING Penicillins Allergy Severe Anaphylaxis Verified 09/27/24 11:44 sulfamethoxazole Allergy Mild Itching Verified 09/27/24 11:44 [From Bactrim] trimethoprim [From Bactrim] Allergy Mild Itching Verified 09/27/24 11:44 codeine Allergy Unknown Unknown Verified 09/27/24 11:44 Vital Signs Vital Signs - 24 hr 09/27/24 11:46 Temperature 97.4 F L Pulse Rate 100 Respiratory Rate 18 Blood Pressure 141/80 H Pulse Oximetry 100 Oxygen Delivery Room Air Exam Const: General: comfortable and no acute distress HENMT: Face/Nose/Sinus: Normal nares present Eyes: General: appearance normal, both eyes and all related structures Neck: Neck: no JVD Resp: Auscultation: clear to auscultation bilaterally Cardio: Rate: regular rate Rhythm: regular rhythm GI: Inspection: non-distended GI Palp: Yes Soft to palpation Skin: General skin exam: normal color Neuro: General: gait normal Speech: normal speech Extrem: General: normal to inspection Psych: Mental Status: mental status grossly normal Assessment and Plan Assessment and plan (1) GERD (gastroesophageal reflux disease): Qualifiers: Esophagitis presence: esophagitis presence not specified Qualified Code(s): K21.9 - Gastro-esophageal reflux disease without esophagitis Code(s): K21.9 - Gastro-esophageal reflux disease without esophagitis Status: Acute Assessment and Plan: egd (2) Family history of colon cancer in father: Code(s): Z80.0 - Family history of malignant neoplasm of digestive organs Status: Acute Assessment and Plan: colonoscopy
--- NOTE | 2024-09-27 12:33 | WPDANESEPPF ---
Anes - Initial Pre Proc Eval Procedure: Operation Date: 09/27/24 13:00 Proposed Procedures p Esophagogastroduodenoscopy&Screen Colon - Edmund Rodriguez MD Date/Time: 09/27/24 12:33 Surgeon: Edmund Rodriguez MD Pre Op Diagnosis: GERD, screening colon Patient Data Age: 54 Gender: F Height: 1.57 m Weight: 93.7 kg Last Vital Signs Temp 36.3 C L 09/27/24 11:46 Pulse 100 09/27/24 11:46 Resp 18 09/27/24 11:46 BP 141/80 H 09/27/24 11:46 Pulse Ox 100 09/27/24 11:46 O2 Del Method Room Air 09/27/24 11:46 Allergies Allergy/AdvReac Type Severity Reaction Status Date / Time clindamycin Allergy Severe ESOPHAGITIS Verified 09/27/24 11:44 hydrocodone Allergy Severe HALLUCINATI Verified 09/27/24 11:44 ONS imipramine Allergy Severe CONFUSION Verified 09/27/24 11:44 latex Allergy Severe ITCHEY Verified 09/27/24 11:44 SWELLING Penicillins Allergy Severe Anaphylaxis Verified 09/27/24 11:44 sulfamethoxazole Allergy Mild Itching Verified 09/27/24 11:44 [From Bactrim] trimethoprim [From Bactrim] Allergy Mild Itching Verified 09/27/24 11:44 codeine Allergy Unknown Unknown Verified 09/27/24 11:44 Home Medications Medication Instructions Recorded Confirmed Type fluticasone propionate 50 1 spray intranasal DAILY 08/19/23 09/27/24 History mcg/actuation nasal spray,suspension alprazolam 0.25 mg tablet 0.25 mg PO QHS PRN Anxiety 12/03/23 09/27/24 History cholecalciferol (vitamin D3) 50 50 mcg PO DAILY 12/03/23 09/27/24 History mcg (2,000 unit) capsule vitamin B complex (B 1 tablet PO DAILY 12/03/23 09/27/24 History Complex-Vitamin B12 tablet) amlodipine 5 mg tablet 10 mg PO DAILY #180 tabs 04/20/24 09/27/24 Rx L.acid,bul,para,rham-B.anim,long 1 cap PO DAILY 06/11/24 09/27/24 History 10 billion cell-inulin 100 mg capsule (Probitoic Digestive Support (6 strain)) albuterol sulfate 90 mcg/actuation 2 inh inhalation Q4-6H PRN 06/11/24 09/27/24 Rx aerosol inhaler shortness of breath or wheezing #8.5 grams aspirin 81 mg tablet,delayed 81 mg PO DAILY 06/11/24 09/27/24 History release (Adult Low Dose Aspirin) esomeprazole magnesium 40 mg 40 mg PO DAILY #90 caps 06/11/24 09/27/24 Rx capsule,delayed release Patient hx anesthesia problems: post op nausea/vomiting Family hx anesthesia problems: none Results Review: All pre-operative results and documents have been reviewed as part of the pre-operative evaluation. [facility] Past Medical History Medical History Essential hypertension GERD (gastroesophageal reflux disease) Hyperlipidemia Insomnia Family History Family History Father Hypertension Family history of elevated blood lipids Acute myocardial infarction Per patient, father had a CABG x5 in 2012. Mother Patient's mother is in good health Family history of elevated blood lipids Family history of diabetes mellitus in first degree relative Grandparent Cerebrovascular accident, Onset Age: 78 Family history of lung cancer, Onset Age: 74 Social History Social History Smoking packs per day: 1 Smoking cigarettes per day: 20.0 Years smoked: 16 Smoking pack-years: 16.00 Smoking status: Former smoker Tobacco type: cigarettes Smoking end date: 06/14/20 Alcohol intake: current Substance use type: does not use Lack of Transportation: No Lack of Food: Never True Current Housing: I Have Housing Concerned About Future Housing: No Difficulty Paying Gas/Electric Bills: No Difficulty Paying for Meds: No Currently Unemployed: No Education: Associate Degree Difficulty w/ Childcare or Family Care: No Living arrangements: with family Additional living arrangements comments: with son Gender identity (if verbalized by the patient): Female Sexual Orientation (if Verbalized by the Patient): Straight or Heterosexual Spiritual care concerns: No Anes - Eval Final PreProcedure Day of Procedure 09/27/24 12:33 Patient weight: obese Heart: regular rate and rhythm Lungs: decreased breath sounds Airway: Mallampati scale class II Neurological: alert and oriented Last oral intake: >/= 8 hours ASA classification: III Emergent: no Anesthetic plan: proceed Anesthesia type and monitoring: general GIVS and standard monitoring Results Review: All pre-operative results and documents have been reviewed as part of the pre-operative evaluation. Informed Consent: The patient's anesthetic plan and its attendant risks and benefits were discussed with the patient/family/POA. Questions were solicited and answers provided to the satisfaction of the patient/family/POA.
--- NOTE | 2024-09-27 12:50 | SUR.OPER ---
EGD start 1241 end 1245, Colonoscopy start 1250
[2024-09-27 13:02] VITALS: BP 106/70; PULSE 84; RESP 18; O2SAT 93
[2024-09-27 13:12] VITALS: BP 125/73; PULSE 82; RESP 20; O2SAT 100
[2024-09-27 13:22] VITALS: BP 122/73; PULSE 79; RESP 15; O2SAT 100
== END 2024-09-27 13:36 | disposition home or self-care (01) ==
PROVIDERS: PCP Internal Medicine; Referring Provider Nurse Practitioner; Visit Provider Internal Medicine Gastroenterology
PROC: 0DJ08ZZ Inspection of Upper Intestinal Tract, Via Natural or Artificial Opening Endoscopic (ICD-10-PCS; CPT 43235; principal; 2024-09-27 13:00)
DX: Z12.11 Encounter for screening for malignant neoplasm of colon (principal); D12.8 Benign neoplasm of rectum; K62.1 Rectal polyp; K57.30 Diverticulosis of large intestine without perforation or abscess without bleeding; K64.8 Other hemorrhoids; Z80.0 Family history of malignant neoplasm of digestive organs; K21.9 Gastro-esophageal reflux disease without esophagitis; I10 Essential (primary) hypertension; E78.5 Hyperlipidemia, unspecified; Z87.891 Personal history of nicotine dependence; Z79.51 Long term (current) use of inhaled steroids; E66.9 Obesity, unspecified; Z68.37 Body mass index [BMI] 37.0-37.9, adult
CPT/HCPCS: 45385; 43239; 88305; J2003; J2704; J7120

== ENCOUNTER 2025-06-04 09:06 | Emergency (ER) | payer BC, SELFPAY ==
[2025-06-04 09:08] VITALS: BP 126/75; PULSE 86; RESP 16; TEMP 36.7; O2SAT 98
--- OUTSIDE RECORDS SUMMARY | 2025-06-04 09:08 | XMS_ITS | Clinical Summary ---
Author Organization [facility] Address [address] [place] [id number] Care Team Providers Care C Wpf Developer Name Role Phone Unavailable Primary Care Provider Unavailabl e Immunizations Immunization Administration Dates Next Due MODERNA COVID-19 (12+) MRNA, LNP-S, PF, 100 MCG/ 0.5 ML DOSE 12/11/2020,11/13/2020 Social History Tobacco Use Types Packs/Day Years Used Date Smoking Tobacco: Never Assessed Comments Unknown Sex and Gender Information Value Date Recorded Sex Assigned at Not on file Legal Sex Female 4:58 PM CDT Gender Identity Not on file Sexual Orientation Not on file Plan of Treatment Health Maintenance Due Date Last Done Comments Cervical Cancer Screening Pa p Smear (Age 30 to 64) Every 3 Years 1971 Colorectal Cancer Screening Colonoscopy (10 Years) 1971 Annual Physical 1974 Hepatitis C 1989 DTaP, Tdap and Td Vaccines ( 1 - Tdap) 1990 Hepatitis B Vaccines (1 of 3 - 19+ 3-dose series) 1990 Cervical Cancer Screening Pa p with HPV Testing (Age 30 to 64) Every 5 Years 2001 Cervical Cancer Screening wi th HPV 2001 Mammogram Screening 2011 Pneumococcal Vaccine: 50+ Years (1 of 1 - PCV) 2021 Zoster Vaccines (1 of 2) 2021 COVID-19 Vaccine ( - 2023-2 5 season) 2024 12/11/2020, 11/13/2020 Meningococcal B Vaccine Aged Out No l onger eligible based on patient's age to complete this topic Meningococcal Vaccine Aged Out No [place] eligible based on patient's age to complete this topic RSV Immunizations Under 20 Months Aged Out No longer eligible b ased on patient's age to complete this topic
--- OUTSIDE RECORDS SUMMARY | 2025-06-04 09:08 | XMS_ITS | Clinical Summary ---
Author Organization [facility] Address [facility] [place] [address] Care Team Providers Care 3Rd Mate Name Role Phone Femi Bhatt MD Primary Care Provider [phone]- [phone] Allergies Active Allergy Reactions Criticality Noted Date Comments Codeine Other (See comments) Low 07/05/2016 Confusion Hydrocodone Rash Medium 07/05/2016 Rash Penicillins Anaphylaxis High 07/05/2016 Anaphylaxis Social History Tobacco Use Types Packs/Day Years Used Date Smoking Tobacco: Never Assessed Personal Safety Answer Date Recorded Getting School Help Needed Not on file 01/09 Comments Unknown Sex and Gender Information Value Date Recorded Sex Assigned at Not on file 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 Gender Identity Not on file Sexual Orientation Not on file Last Filed Vital Signs Vital Sign Reading Time Taken Comments Blood Pressure 114/64 07/05/2016 9:49 AM CDT Pulse 80 07/05/2016 9:49 AM CDT Temperature 36.7 C (98 F) 07/05/2016 9:49 AM CDT Respiratory Rate - - Oxygen Saturation 100% 07/05/2016 9:49 AM CDT Inhaled Oxygen Concentration - - Weight 73.5 kg (162 lb) 07/05/2016 9:49 AM CDT Height 157.5 cm (5' 2) 07/05/2016 9:49 AM CDT Body Mass Index 29.63 07/05/2016 9:49 AM CDT Plan of Treatment Not on file Insurance [employer] ACC[employer] CHOICE Care Teams 3Rd Mate Relationship Specialty Start Date End Date Femi Bhatt MD [address] [place], [place] [id number] PCP - General Internal Medicine 11/12/21
[2025-06-04 09:50] VITALS: BP 149/80; PULSE 75; RESP 18; O2SAT 97
--- OUTSIDE RECORDS SUMMARY | 2025-06-04 10:12 | XMS_ITS | Clinical Summary ---
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
--- OUTSIDE RECORDS SUMMARY | 2025-06-04 10:12 | XMS_ITS | Clinical Summary ---
Author Organization [facility] Address [address] [place] [address] Care Team Providers Care Integrated Marketing Specialist Name Role Phone Unavailable Primary Care Provider [...]
[2025-06-04 10:38] LABS: Add Urine Microscopic? NO; Appearance Urine Clear (Clear); Glucose Urine UA Negative (Negative); Leukocyte Esterase Ur Negative LEU/UL (Negative); Nitrate Urine Negative (Negative); Specific Grav Ur 1.009 (1.001-1.035)
--- NOTE | 2025-06-04 10:45 | ED_ITS ---
HPI - General Adult General Chief complaint: Back Pain/Injury Stated complaint: BACK PAIN RADIATING DOWN LEGS Time Seen by Provider: 06/04/25 10:04 History of Present Illness HPI narrative: 55-year-old female present to the emergency department for evaluation for worsening lower back pain. Patient does have a history of back pain has been following up with a chiropractor. Patient states the current back pain has been worsening over the last 3 weeks. Patient describes right lower back pain that does radiate down her right leg typically to the level of the knee, patient does describe some tingling the scan on the right lateral leg. Patient states she has had intermittent pain that does shoot down to the toe but this is not lasting pain. Patient denies any associated numbness or weakness of the toe. Patient denies any change in bowel or bladder habits. Patient has not been taking any medications for pain control including Tylenol or ibuprofen. Related Data Home Medications ?Medication ?Instructions ?Recorded ?Confirmed ?Last Taken ?Type fluticasone propionate 50 1 spray intranasal DAILY 08/19/23 05/27/25 09/27/24 History mcg/actuation nasal spray,suspension alprazolam 0.25 mg tablet 0.25 mg PO QHS PRN Anxiety 12/03/23 05/27/25 09/27/24 History cholecalciferol (vitamin D3) 50 50 mcg PO DAILY 12/03/23 05/27/25 09/27/24 History mcg (2,000 unit) capsule vitamin B complex (B 1 tablet PO DAILY 12/03/23 05/27/25 09/27/24 History Complex-Vitamin B12 tablet) L.acid,bul,para,rham-B.anim,long 1 cap PO DAILY 06/11/24 05/27/25 09/27/24 History 10 billion cell-inulin 100 mg capsule (Probitoic Digestive Support (6 strain)) aspirin 81 mg tablet,delayed 81 mg PO DAILY 06/11/24 05/27/25 09/27/24 History release (Adult Low Dose Aspirin) amlodipine 5 mg tablet 5 mg PO DAILY 05/27/25 05/27/25 Unknown History digestive enzymes 1 cap PO DAILY 05/27/25 05/27/25 Unknown History varenicline tartrate 0.5 mg tablet 1 mg PO DAILY 05/27/25 05/27/25 Unknown History Allergies Allergy/AdvReac Type Severity Reaction Status Date / Time clindamycin Allergy Severe ESOPHAGITIS Verified 06/04/25 09:54 hydrocodone Allergy Severe HALLUCINATI Verified 06/04/25 09:54 ONS imipramine Allergy Severe CONFUSION Verified 06/04/25 09:54 latex Allergy Severe ITCHEY Verified 06/04/25 09:54 SWELLING Penicillins Allergy Severe Anaphylaxis Verified 06/04/25 09:54 sulfamethoxazole (From Allergy Mild Itching Verified 06/04/25 09:54 Bactrim) trimethoprim (From Bactrim) Allergy Mild Itching Verified 06/04/25 09:54 codeine Allergy Unknown Unknown Verified 06/04/25 09:54 Review of Systems Review of Systems: All systems reviewed & are unremarkable except as noted in HPI and below PMFSH Past Medical History Medical History (Updated 06/04/25 @ 10:50 by Bari Valentino MD) Dorsalgia Pure hypercholesterolemia, unspecified Pure hypercholesterolemia Other fatigue Family hx of colon cancer Family history of colon cancer in father GERD (gastroesophageal reflux disease) Essential hypertension Insomnia Hyperlipidemia Family History Family History (Updated 12/10/24 @ 14:31 by RAEGAN Das) Father Hypertension Family history of elevated blood lipids Acute myocardial infarction Per patient, father had a CABG x5 in 2012. AAA (abdominal aortic aneurysm) Carcinoma of colon Mother Patient's mother is in good health Family history of elevated blood lipids Family history of diabetes mellitus in first degree relative Diabetes mellitus Grandparent Cerebrovascular accident, Onset Age: 78 Family history of lung cancer, Onset Age: 74 Social History Social History (Updated 12/10/24 @ 14:32 by RAEGAN Das) Smoking packs per day: 1 Smoking cigarettes per day: 20.0 Years smoked: 16 Smoking pack-years: 16.00 Smoking status: Current some day smoker Tobacco type: cigarettes Second hand tobacco smoke exposure: No Smoking end date: 06/14/20 Alcohol intake: current Substance use: never Substance use type: does not use Do You Feel Safe in your Home?: Yes Lack of Transportation: No Lack of Food: Never True Current Housing: I Have Housing Concerned About Future Housing: No Difficulty Paying Gas/Electric Bills: No Difficulty Paying for Meds: No Currently Unemployed: No Education: Associate Degree Difficulty w/ Childcare or Family Care: No Living arrangements: with family Additional living arrangements comments: with son Occupation/Education: occupation 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 HEAD: normocephalic, atraumatic. EYES: PERRLA/EOMI, conjunctivae clear. NOSE: Normal no drainage EARS:TMS clear with good light reflex. THROAT: Pharynx clear, no exudate. NECK: Supple. No adenopathy, no masses. RESPIRATORY: Airway patent, respirations nonlabored. Clear to auscultation bilaterally, no rales, rhonchi, wheezing. CARDIOVASCULAR: Regular rate and rhythm without murmurs rubs or gallops. ABDOMINAL: Soft, nontender, nondistended, normal bowel sounds MUSCULOSKELETAL: Moves all extremities. Strength/ROM intact, No edema, No calf tenderness. NEURO: Alert. Cranial nerves II through XII intact. Good gait. Good coordination SKIN: Warm, dry. Normal Color Course Vital Signs Vital signs: Vital Signs Temperature 98.1 F 06/04/25 09:08 Pulse Rate 86 06/04/25 09:08 Respiratory Rate 16 06/04/25 09:08 Blood Pressure 126/75 06/04/25 09:08 Pulse Oximetry 98 06/04/25 09:08 Oxygen Delivery Room Air 06/04/25 09:08 Temperature 98.1 F 06/04/25 09:08 Pulse Rate 87 06/04/25 11:03 Respiratory Rate 18 06/04/25 11:03 Blood Pressure 144/79 H 06/04/25 11:03 Pulse Oximetry 98 06/04/25 11:03 Oxygen Delivery Room Air 06/04/25 09:50 Medical Decision Making MDM Narrative Medical decision making narrative: 55 old female presents to the emergency department for evaluation for lower back pain that does radiate to her right hip. Exam is consistent with sciatica. Patient has no associated numbness or weakness. Patient is uncomfortable at time of evaluation. Patient was treated with IM dexamethasone, IM Toradol, p.o. [place] and p.o. Flexeril. Patient will be discharged home with instructions for a Medrol Dosepak, Flexeril and [place] for pain control. Patient was also encouraged close follow-up with her primary care physician. All questions concerns were addressed patient was comfortable the plan was discharged close follow-up. Differential Diagnosis Differential Diagnosis: Cauda equina, lumbar fracture, sciatica Vital Signs Vital Signs: Vital Signs Temperature 98.1 F 06/04/25 09:08 Pulse Rate 86 06/04/25 09:08 Respiratory Rate 16 06/04/25 09:08 Blood Pressure 126/75 06/04/25 09:08 Pulse Oximetry 98 06/04/25 09:08 Oxygen Delivery Room Air 06/04/25 09:08 Temperature 98.1 F 06/04/25 09:08 Pulse Rate 87 06/04/25 11:03 Respiratory Rate 18 06/04/25 11:03 Blood Pressure 144/79 H 06/04/25 11:03 Pulse Oximetry 98 06/04/25 11:03 Oxygen Delivery Room Air 06/04/25 09:50 Lab Data Labs: Lab Results 06/04/25 Range/Units 10:32 Urine Color Yellow (Yellow) Urine Appearance Clear (Clear) Urine pH 7.0 (5.0-9.0) Ur Specific [place] 1.009 (1.001-1.035) Urine Protein Negative (Negative) mg/dL Urine Glucose (UA) Negative (Negative) mg/dL Urine Ketones Negative (Negative) mg/dL Ur Blood (Man) Negative (Negative) Urine Nitrate Negative (Negative) Urine Bilirubin Negative (Negative) Urine Urobilinogen 0.2 (<2.0) mg/dL Leukocyte Esterase Rfl Negative (Negative) ERICK/UL Discharge Plan Discharge Clinical Impression: Back pain, Sciatica Patient Disposition: Home Condition: Stable Instructions: Sciatica (ED), Acute Low Back Pain (ED), Back Pain (ED) Additional Instructions: Medrol Dosepak as directed until completed. Flexeril for muscle spasm. Tramadol as needed for additional pain control. Have close follow-up with your primary care physician. If you have any worsening symptoms please call or return to the emergency department. Patient Language: Kinyarwanda Prescriptions: New cyclobenzaprine 10 mg tablet 10 mg PO BID PRN (Reason: muscle spasm) Qty: 14 0RF tramadol 50 mg tablet 50 mg PO Q6H PRN (Reason: pain) Qty: 14 0RF methylprednisolone [Medrol (Sixt[place])] 4 mg tablets,dose pack See Rx Instructions .ROUTE .COMPLEX Qty: 21 0RF Rx Instructions: for 6 days No Action fluticasone propionate [Flonase] 50 mcg/actuation [place],Suspension 1 spray INTRANASAL DAILY Rx Instructions: administer into each nostril vitamin B complex [B Complex-Vitamin B12] Tablet 1 tablet PO DAILY cholecalciferol (vitamin D3) 50 mcg (2,000 unit) capsule 50 mcg PO DAILY alprazolam 0.25 mg tablet 0.25 mg PO QHS PRN (Reason: Anxiety) amlodipine 5 mg tablet 5 mg PO DAILY digestive enzymes Capsule 1 cap PO DAILY Rx Instructions: administer with food; swallow whole; do not crush/chew/dissolve/break/cut varenicline tartrate 0.5 mg tablet 1 mg PO DAILY Probiotic Digest Supp (6-strn) 10 billion cell -100 mg capsule 1 cap PO DAILY aspirin [Adult Low Dose Aspirin] 81 mg tablet,delayed release (DR/EC) 81 mg PO DAILY albuterol sulfate 90 mcg/actuation HFA aerosol inhaler 2 inh inhalation Q4-6H PRN (Reason: shortness of breath or wheezing) Qty: 8.5 4RF esomeprazole magnesium 40 mg capsule,delayed release(DR/EC) 40 mg PO DAILY Qty: 90 2RF metoprolol succinate 25 mg tablet extended release 24 hr 25 mg PO DAILY Qty: 30 6RF Follow-up/Referrals: Gerald Cuenca DO [Primary Care Provider] -
[2025-06-04] MEDS: KETOROLAC (*BKC) 60 MG/2 ML VIAL IM (10:52)
[2025-06-04] MEDS: CYCLOBENZAPRINE HCL 10 MG TABLET PO (10:52)
[2025-06-04] MEDS: dexAMETHasone SOD PHOS INJ 10 MG/ML 1 ML VIAL IM (10:52)
[2025-06-04 11:03] VITALS: BP 144/79; PULSE 87; RESP 18; O2SAT 98
== END 2025-06-04 11:06 | disposition home or self-care (01) ==
PROVIDERS: Emergency Provider Emergency Medicine; PCP Internal Medicine
DX: M54.40 Lumbago with sciatica, unspecified side (principal); I10 Essential (primary) hypertension; F17.210 Nicotine dependence, cigarettes, uncomplicated
CPT/HCPCS: 81003; 96372; 99284; A9270; J1100; J1885

== ENCOUNTER 2025-06-10 15:41 | Outpatient (CLI) | payer BC, SELFPAY ==
--- NOTE | ~2025-06-10 | XR_ITS ---
EXAM: XR sacrum coccyx min 2V DATE: 06/10/2025 16:12 HISTORY: M53.3 - Sacrococcygeal disorders, not elsewhere classified . COMPARISON: None available. FINDINGS: Normal mineralization. No fracture or dislocation. No lytic or blastic lesion. Mild degene rative change at the pubic symphysis. No erosion or periosteal change. Soft tissues within normal moore its. IMPRESSION: Osteitis pubis. Reviewed, dictated and finalized at location K. IMPRESSION: Osteitis pubis.
--- NOTE | ~2025-06-10 | XR_ITS ---
Lumbosacral Spine: AP and lateral views Clinical History: Pain Findings: The normal lordotic curve is maintained. No fracture seen. There is 5 mm anterolisthesis of L4 over L5. There is severe facet arthropathy, especially from L4 through S1. The sacroiliac joints are normally outlined. Impression: 5 mm anterolisthesis of L4 over L5. Facet arthropathy, as above. Reviewed, dictated and finalized at location M. Impression: 5 mm anterolisthesis of L4 over L5. Facet arthropathy, as above.
== END 2025-06-10 15:42 | disposition home or self-care (01) ==
LOC: MICIMG 15:46
PROVIDERS: PCP Internal Medicine; Visit Provider Nurse Practitioner
DX: M53.3 Sacrococcygeal disorders, not elsewhere classified (principal); M54.50 Low back pain, unspecified; M86.8X8 Other osteomyelitis, other site
CPT/HCPCS: 72100; 72220